=== PATIENT | female | born 1980 | race Caucasian/White ===

== ENCOUNTER 2019-01-15 04:47 | Day surgery (SDC) | payer BC, OTHER ==
[2019-01-10 15:42] VITALS: BMI 49.7
[2019-01-15] MEDS ORDERED: PROPOFOL 20 ML ONE (07:41)
[2019-01-15] MEDS ORDERED: LIDOCAINE HCL/PF 2% SDV 5ML VIAL ONE (07:42)
[2019-01-15] MEDS ORDERED: ceFAZolin SODIUM 1 GM VIAL ONE (07:42)
[2019-01-15] MEDS ORDERED: SODIUM CHLORIDE 0.9% P/F 10 ML VIAL IJ ONE ×2 (07:42→07:46)
[2019-01-15] MEDS ORDERED: MIDAZOLAM HCL 2 MG/2 ML SINGLE DOSE VIAL ONE (07:42)
[2019-01-15] MEDS ORDERED: SUCCINYLCHOLINE CHLORIDE 200 MG/10 ML SYRINGE ONE (07:42)
[2019-01-15] MEDS ORDERED: KETOROLAC TROMETHAMINE 30 MG/1 ML VIAL ONE (07:47)
[2019-01-15] MEDS ORDERED: ceFAZolin SODIUM 1 GM VIAL IVPB ONE (08:13)
--- NOTE | 2019-01-15 08:14 | HP ---
Satellite [facility] - Chief Complaint Chief Complaint: right hand pain, numbness, tingling, weakness History of Present Illness: right CTS History Source: Patient Limitations to Obtaining History: No Limitations - Past Medical History Allergies/Adverse Reactions: Allergies Allergy/AdvReac Type Severity Reaction Status Date / Time codeine Allergy "difficulty Verified 01/10/19 15:42 breathing" ...LMP: 01/02/19 - Current Medications Current Medications: Home Medications Medication Instructions Recorded Iron 65 mg PO DAILY 01/10/19 Satellite Physical Exam - Physical Examination Vital Signs: Vital Signs Period Temp Pulse Resp BP Sys/Barrera Pulse Ox Last 24 Hr 98.4 F-98.4 F 94-94 18-18 122-122/72-72 98 General Appearance: Well Nourished ENT: Clear Lung: Clear to auscultation Heart: Regular rate & rhythm Breasts: Soft Abdomen: Soft Extremities: No edema Satellite Impression/Plan - Impression/Plan Impression: right CTS Operative Procedure: right CTR Date to be Performed: 01/15/19
[2019-01-15] MEDS ORDERED: BUPIVACAINE HCL/PF 0.5% (5 MG/ML) 30 ML VIAL IJ ONE (08:27)
[2019-01-15] MEDS ORDERED: LIDOCAINE HCL 1%, 10 MG/ML (20ML VIAL) NR ONE (08:27)
--- NOTE | 2019-01-15 09:02 | OP ---
Operative Note - Note: Operative Date: 01/15/19 Pre-Operative Diagnosis: right CTS, tenosynovitis Operation: right CTR, tenosynovectomy Post-Operative Diagnosis: Same as Pre-op Surgeon: Shantanu Segovia Electric Power Superintendent: Hawk Barrientos Anesthesiologist/ACCOUNTS PAYABLE COORDINATOR: Scotty Saba Anesthesia: Local, MAC Specimens Removed: tenosynovium Estimated Blood Loss (mls): 0 Drains, Volume Out (mls): 0 Blood Volume Replaced (mls): 0 Fluid Volume Replaced (mls): 500 Operative Report Dictated: Yes
[2019-01-15 10:15] VITALS: BP 119/82; PULSE 86; TEMP 97.8
[2019-01-15] MEDS ORDERED: ONDANSETRON 4 MG/2 ML VIAL IVPUSH PRN (11:22)
[2019-01-15] MEDS ORDERED: oxyCODONE HCL 5 MG TABLET PO PRN (11:22)
[2019-01-15] MEDS ORDERED: LACTATED RINGERS SOLUTION 1,000 ML IV SCH (11:30)
--- NOTE | 2019-01-15 21:43 | SPEC ---
DATE OF OPERATION: DATE OF DICTATION: 01/15/2019 PREOPERATIVE DIAGNOSIS: Right carpal tunnel syndrome and tenosynovitis. POSTOPERATIVE DIAGNOSIS: Right carpal tunnel syndrome and tenosynovitis. PROCEDURE: Right carpal tunnel release and tenosynovectomy. SURGEON: Shantanu Segovia MD AUTO HIKER: Darrell Chaparro MD ANESTHESIA: Scotty Saba, FURNITURE PAINTER, MAC with local injection of 12 mL 0.5% Marcaine, 1% lidocaine mix. DRAINS: None. COMPLICATIONS: None. SPECIMENS: Tenosynovium, right wrist. ESTIMATED BLOOD LOSS: None. BLOOD GIVEN: None. INDICATION FOR PROCEDURE: This patient is a 38-year-old female with a preoperative diagnosis of severe, recurrent right carpal tunnel syndrome and tenosynovitis. After understanding the potential risks, complications, alternatives, and benefits to surgery versus nonsurgical treatment, the patient elected to undergo this procedure. Specifically, the understands she may not get complete relief of her symptoms. She may have a continuation of her numbness, tingling, pins and needles, less sensation, weakness, etc. DESCRIPTION OF PROCEDURE: The patient was brought to the operating room, peripheral IV placed and intravenous sedation was given. She received 3 g of IV Ancef preoperatively. MAC anesthesia was induced. A tourniquet was applied to the right upper arm and the right upper extremity was prepped and draped in sterile fashion. The entire case was done under 3.8 loupe magnification. A marking pen was utilized to kevin out a longitudinal incision in an already existing skin crease. Twenty mL of 0.5% Marcaine mixed with 1% Lidocaine was injected in and around the surgical incision. The right upper extremity was elevated, exsanguinated with an Esmarch bandage and the tourniquet inflated to 250 mmHg. A No. 15 scalpel blade was utilized to cut down through the skin. Subcutaneous hemostasis was achieved with the bipolar cautery. Dissection was done through the superficial palmar fascia. Self-retaining retractors were placed into the wound. Under direct visualization, the transverse carpal ligament was transected with a No. 15 scalpel blade, exposing the median nerve and the contents of the carpal tunnel. The distal and proximal extents of the release were completed with a Littler scissor and checked with irrigation and my small finger. They were seen to be complete. Limited dissection was done on the radial side of the median nerve and more extensive dissection was done on the ulnar side of the median nerve. The patients nerve was seen to be quite compressed by epineurium and therefore a limited epineurotomy was performed. A Ragnell retractor was used to gently retract the median nerve in a radial direction. The patient had a lot of tenosynovitis and therefore a tenosynovectomy was performed off all 9 flexor tendons. This was passed off the field as tenosynovium right wrist. The floor of the carpal tunnel was checked. There were no abnormal masses or ganglion cysts. The area was copiously irrigated and washed out and closure begun. Undyed 4-0 Vicryl was used to close the deep dermal layer. Final skin reapproximation was done with horizontal mattress 4-0 nylon sutures. The area was then washed and dried, covered with Xeroform, 4x4s, fluffs between the fingers, Webril and a 4-inch plaster roll was utilized to make a volar splint, which was then wrapped with Ger and Coban. The tourniquet was taken down after a total tourniquet time of minutes. There were no complications during the case. The patient tolerated the procedure well and was brought to the ambulatory recovery room in stable condition. DARRELL CHAPARRO M.D. [id number]
--- NOTE | 2019-01-18 01:05 | PATH ---
Surgical Pathology Report Patient Name: MORALES MCGINNIS [facility]. Rec. #: [id number] /Age/Gender: 1980 (Age: 38) / F Account: [id number] [facility] Taken: 01/15/2019 Received: 01/15/2019 Reported: 01/18/2019 Physicians: Hawk Barrientos M.D. Specimen(s) Received TENOSYNOVIUM Clinical History Right carpal Tunnel Final Diagnosis TENOSYNOVIUM, RIGHT, CARPAL TUNNEL RELEASE: BENIGN DENSE CONNECTIVE TISSUE. Electronically Signed Ragini Amin M.D. Gross Description Received in formalin labeled "tenosynovium" are multiple, irregular, white-aguilera fragments of soft tissue measuring 2 x 2 x 0.5 cm in aggregate. Mold Maker sections are submitted in one cassette. MLSZ/01/15/2019 sanml/01/15/2019
== END 2019-01-15 10:15 | disposition home or self-care (01) ==
LOC: JASU-SURG 04:47
PROVIDERS: ATTEND Orthopaedic Surgery
PROC: 0LB70ZZ Excision of Right Hand Tendon, Open Approach (ICD-10-PCS; 2019-01-15)
PROC: 01N50ZZ Release Median Nerve, Open Approach (ICD-10-PCS; principal; 2019-01-15 08:00)
DX: G56.01 Carpal tunnel syndrome, right upper limb (principal); M65.841 Other synovitis and tenosynovitis, right hand
CPT/HCPCS: 84703; 88304-TC

== ENCOUNTER 2019-12-03 07:38 | Day surgery (SDC) | payer BC, OTHER ==
[2019-12-02 10:51] VITALS: BMI 49.4
--- NOTE | 2019-12-02 14:21 | HP ---
Satellite [facility] - Chief Complaint Chief Complaint: left hand pain/numbness - Past Medical History Allergies/Adverse Reactions: Allergies Allergy/AdvReac Type Severity Reaction Status Date / Time codeine Allergy "difficulty Verified 01/10/19 15:42 breathing" ...LMP: 12/01/19 - Current Medications Current Medications: Home Medications Medication Instructions Recorded Iron 65 mg PO DAILY 01/10/19 Satellite Physical Exam - Physical Examination General Appearance: Well Nourished, Well Developed, Alert & Oriented x3 ENT: Clear Lung: Normal air movement Extremities: Other (left hand- + tinels, + phalens, EMG + cts) Neurological: Intact, Alert, Oriented Satellite Impression/Plan - Impression/Plan Impression: left cts Operative Procedure: left ctr Date to be Performed: 12/03/19
[2019-12-03] MEDS ORDERED: MIDAZOLAM HCL 2 MG/2 ML SINGLE DOSE VIAL ONE (10:15)
[2019-12-03] MEDS ORDERED: PROPOFOL 20 ML ONE ×2 (10:15→11:09)
[2019-12-03] MEDS ORDERED: LIDOCAINE HCL 1%, 10 MG/ML (20ML VIAL) ONE (10:39)
[2019-12-03] MEDS ORDERED: KETOROLAC TROMETHAMINE 30 MG/1 ML VIAL ONE (10:50)
[2019-12-03] MEDS ORDERED: ceFAZolin SODIUM 1 GM VIAL ONE (10:50)
[2019-12-03] MEDS ORDERED: DEXAMETHASONE SOD PHOSPHATE 4 MG/1 ML VIAL ONE (10:50)
[2019-12-03] MEDS ORDERED: ceFAZolin SODIUM 1 GM VIAL IVPB ONE (10:58)
[2019-12-03] MEDS ORDERED: BUPIVACAINE HCL 0.5% 250 MG/50 ML VIAL IJ ONE (11:18)
[2019-12-03] MEDS ORDERED: LIDOCAINE HCL 1%, 10 MG/ML (20ML VIAL) NR ONE (11:19)
--- NOTE | 2019-12-03 11:35 | OP ---
Operative Note - Note: Operative Date: 12/03/19 Pre-Operative Diagnosis: left CTS, tenosynovitis Operation: left CTR, tenosynovectomy Post-Operative Diagnosis: Same as Pre-op Surgeon: Shantanu Segovia Field Mechanical Meter Tester: Hawk Barrientos Anesthesiologist/DELICATESSEN CLERK: Lelia Crespo Anesthesia: Local, MAC Specimens Removed: tenosynovium Estimated Blood Loss (mls): 0 Drains, Volume Out (mls): 0 Blood Volume Replaced (mls): 0 Fluid Volume Replaced (mls): 700 Operative Report Dictated: Yes
[2019-12-03 12:14] VITALS: TEMP 97.2
[2019-12-03] MEDS ORDERED: ONDANSETRON 4 MG/2 ML VIAL IVPUSH PRN (12:24)
[2019-12-03] MEDS ORDERED: oxyCODONE HCL 5 MG TABLET PO PRN (12:24)
[2019-12-03] MEDS ORDERED: ACETAMINOPHEN 325 MG TABLET (FP) PO ONE (12:30)
[2019-12-03 13:10] VITALS: BP 111/77; PULSE 79
--- NOTE | 2019-12-03 17:31 | OP ---
DATE OF OPERATION: 12/03/2019 PREOPERATIVE DIAGNOSIS: Left carpal tunnel syndrome. POSTOPERATIVE DIAGNOSIS: Left carpal tunnel syndrome. PROCEDURE: Left carpal tunnel release and tenosynovectomy. SURGEON: Shantanu Segovia MD. WASTE TRANSPORTATION TECHNICIAN: Darrell Chaparro MD. ANESTHESIOLOGIST: Lelia Crespo CRNA. ANESTHESIA: MAC anesthesia, local injection of 15 mL 0.5% Marcaine, 1% lidocaine mix. DRAINS: None. COMPLICATIONS: None. SPECIMENS: Tenosynovium left wrist. BLOOD LOSS: None. BLOOD GIVEN: None. FLUID REPLACEMENT: 700 mL Plasmalyte. INDICATION: This patient is a 39-year-old female with the preoperative diagnosis of severe left carpal tunnel syndrome. After understanding the potential risks, complications, alternatives, benefits to surgery versus nonsurgical treatment, the patient elected to undergo this procedure. DESCRIPTION OF PROCEDURE: The patient was brought to the operating room, peripheral IV placed and intravenous sedation was given. Two grams of intravenous Ancef was given. MAC anesthesia was induced. A tourniquet was applied to the left upper arm and the left upper extremity was prepped and draped in sterile fashion. The entire case was done under 3.8 loupe magnification. A marking pen was utilized to kevin out a longitudinal incision in an already existing skin crease. Twenty mL of 0.5% Marcaine mixed with 1% Lidocaine was injected in and around the surgical incision. The left upper extremity was elevated, exsanguinated with an Esmarch bandage and the tourniquet inflated to 250 mmHg. A No. 15 scalpel blade was utilized to cut down through the skin. Subcutaneous hemostasis was achieved with the bipolar cautery. Dissection was done through the superficial palmar fascia. Self-retaining retractors were placed into the wound. Under direct visualization, the transverse carpal ligament was transected with a No. 15 scalpel blade, exposing the median nerve and the contents of the carpal tunnel. The distal and proximal extents of the release were completed with a Littler scissor and checked with irrigation and my small finger. They were seen to be complete. Limited dissection was done on the radial side of the median nerve and more extensive dissection was done on the ulnar side of the median nerve. The patients nerve was seen to be quite compressed by epineurium and therefore a limited epineurotomy was performed. A Ragnell retractor was used to gently retract the median nerve in a radial direction. The patient had a lot of tenosynovitis and therefore a tenosynovectomy was performed off all 9 flexor tendons. This was passed off the field as tenosynovium left wrist. The floor of the carpal tunnel was checked. There were no abnormal masses or ganglion cysts. The area was copiously irrigated and washed out and closure begun. Undyed 4-0 Vicryl was used to close the deep dermal layer. Final skin reapproximation was done with horizontal mattress 4-0 nylon sutures. The area was then washed and dried, covered with Xeroform, 4x4s, fluffs between the fingers, Webril and a 4-inch plaster roll was utilized to make a volar splint, which was then wrapped with Ger and Coban. The tourniquet was taken down after a total tourniquet time of 20 minutes. There were no complications during the case. The patient tolerated the procedure well and was brought to the ambulatory recovery room in stable condition. DARRELL CHAPARRO M.D. [id number]
--- NOTE | 2019-12-04 12:27 | PATH ---
Surgical Pathology Report Patient Name: MORALES MCGINNIS [facility]. Rec. #: [id number] /Age/Gender: 1980 (Age: 39) / F Account: [id number] Location: [facility] Taken: 12/03/2019 Received: 12/03/2019 Reported: 12/04/2019 Physicians: Hawk Barrientos M.D. Specimen(s) Received TENOSYNOVIUM Clinical History Left carpal tunnel Final Diagnosis TENOSYNOVIUM, EXCISION: TENOSYNOVIAL TISSUE WITH FOCAL FIBROSIS. Electronically Signed Juaquin Reagan M.D. Gross Description Received in formalin labeled "tenosynovium," is a 2.0 x 1.4 x 0.3 cm aggregate of aguilera-yellow portion of soft tissue, consistent with tenosynovium. The specimen is entirely submitted in one cassette. /12/03/2019 saudi/12/03/2019
== END 2019-12-03 12:45 | disposition home or self-care (01) ==
LOC: JASU-SURG 07:38
PROVIDERS: ATTEND Orthopaedic Surgery
PROC: 01N50ZZ Release Median Nerve, Open Approach (ICD-10-PCS; principal; 2019-12-03 10:00)
DX: G56.02 Carpal tunnel syndrome, left upper limb (principal)
CPT/HCPCS: 84703; 88304-TC